=== PATIENT | female | born 1985 | race Two or more races ===

== ENCOUNTER 2025-08-15 10:54 | Emergency (ER) | payer OTHER ==
[~2025-08-15] VITALS: Ht 167.6 cm; Wt 64.0 kg
[2025-08-15 10:57] VITALS: TEMP 98.1; O2SAT 99
[2025-08-15] MEDS: ONDANSETRON 4MG ODT PO ONE (11:35)
[2025-08-15 12:13] LABS: BASOPHILS % 0.4 % (0.0-2.0); CLARITY URINE TURBID (CLEAR); COLOR URINE YELLOW (YELLOW); EOSINOPHILS % 1.0 % (0.0-5.0); GLUCOSE URINE NEGATIVE (NEGATIVE); HEMATOCRIT. 38.7 % (36.0-48.0); HEMOGLOBIN. 12.9 g/dL (12.0-16.0); KETONES URINE TRACE (NEGATIVE); LEUKOCYTE ESTERASE URINE TRACE (NEGATIVE); LYMPHOCYTES % 22.1 % (20.0-50.0); MEAN PLATELET VOLUME 7.1 fl (7.4-10.4); MONOCYTES % 6.5 % (2.0-8.0); NEUTROPHILS % 70.0 % (40.0-76.0); NITRITE URINE NEGATIVE (NEGATIVE); OCCULT BLOOD URINE NEGATIVE (NEGATIVE); PH URINE 5.5 (4.5-8.0); PLATELET 330 x1000/uL (130-400); PROTEIN URINE NEGATIVE (NEGATIVE); RED BLOOD CELL COUNT 4.18 mill/uL (4.2-5.4); RED CELL DISTRIBUTION WIDTH 12.6 % (11.6-14.6); SPECIFIC GRAVITY URINE 1.017 (1.005-1.030); UROBILINOGEN URINE 0.2 E.U./dL (0.2-1.0)
[2025-08-15 12:17] LABS: UREA NITROGEN BLOOD 11 mg/dL (9-23)
[2025-08-15 12:18] LABS: CREATININE 0.6 mg/dL (0.6-1.0); TROPONIN I HIGH SENSITIVITY < 4 ng/L (3.0-34)
[2025-08-15 12:20] LABS: ASPARTATE AMINOTRANSFERASE 27 IU/L (<34); BILIRUBIN DIRECT 0.2 mg/dL (<=3.0)
[2025-08-15 12:21] LABS: BILIRUBIN TOTAL 0.9 mg/dL (0.1-1.0); PROTEIN TOTAL 7.8 g/dL (6.0-8.3)
[2025-08-15 12:49] LABS: MUCUS URINE 3+ /lpf (< = 2+); SQUAMOUS EPITHELIAL CELL URINE 2+ /lpf (RARE/1+)
[2025-08-15 12:50] LABS: RBC URINE 0-2 /hpf (0-2); WBC URINE 0-2 /hpf (0-2)
[2025-08-15 12:51] LABS: BACTERIA URINE 2+
[2025-08-15 13:12] LABS: HCG SCREEN NEGATIVE
[2025-08-15] MEDS ORDERED: MECL-217 MT (13:41)
[2025-08-15] MEDS ORDERED: ONDA-239 PO (13:41)
[2025-08-15] MEDS: MECLIZINE 25MG TABLET PO ONE (13:44)
[2025-08-15] MEDS: SODIUM CHLORIDE 0.9% 1,000 ML IV ONE (13:44)
[2025-08-15 15:03] VITALS: BP 101/64; PULSE 75; RESP 12; O2SAT 100
== END 2025-08-15 15:05 | disposition home or self-care (01) ==
LOC: ER 10:54
DX: R42 Dizziness and giddiness (principal); Z79.899 Other long term (current) drug therapy
CPT/HCPCS: 80076; 80048; 81003; 81025; 84703; 83690; 83735; 85025; 86850; 86900; 86901; 84484; 36415; 93005; 96360; 99284; J8597; Q0162; J7030; Z7610